=== PATIENT | male | born 1955 | race Caucasian/White ===

== ENCOUNTER → 2023-07-16 | Outpatient (CLI) | payer MEDICARE, OTHER | LOC: RAD 19:00 | DX: K86.2 Cyst of pancreas (principal); K76.89 Other specified diseases of liver | CPT/HCPCS: A9575 ==

== ENCOUNTER → 2024-01-12 | Outpatient (CLI) | payer MEDICARE ==
[~2024-01-12] MED LIST: Gadoterate 20 ML VIAL IV ONE
== END ==
LOC: RAD 14:59
DX: D49.0 Neoplasm of unspecified behavior of digestive system (principal)
CPT/HCPCS: A9575

== ENCOUNTER → 2024-06-10 | Outpatient (CLI) | payer MEDICARE, OTHER | LOC: RAD 07:19 | DX: K86.2 Cyst of pancreas (principal) | CPT/HCPCS: A9575 ==